=== PATIENT | male | born 1990 | race Caucasian/White ===

== ENCOUNTER 2018-07-20 18:37 | Emergency (ER) | payer SELFPAY, OTHER ==
[2018-07-20] MEDS: IBUPROFEN 600 MG TAB PO (21:42)
[2018-07-20 21:55] LABS: ADD UMIC YES; UR ASCORBIC ACID NEGATIVE (NEGATIVE); UR BACTERIA FEW /HPF (NONE SEEN); UR BILIRUBIN (Dip) NEGATIVE (NEGATIVE); UR BLOOD (Dip) NEGATIVE (NEGATIVE); UR CLARITY SLIGHTLY CLOUDY (CLEAR); UR COLOR YELLOW (YELLOW); UR GLUCOSE (Dip) NEGATIVE (NEGATIVE); UR KETONES (Dip) NEGATIVE (NEGATIVE); UR LEUKOCYTE ESTERASE (Dip) 2+ Leu/ul (NEGATIVE); UR MUCUS FEW /HPF (NONE SEEN); UR NITRITE (Dip) NEGATIVE (NEGATIVE); UR RBC 7 /HPF (0-5); UR SPECIFIC GRAVITY (Dip) 1.025 (1.003-1.030); UR TOTAL PROTEIN (Dip) 1+ mg/dl (NEGATIVE); UR UROBILINOGEN (Dip) 2+ mg/dL (NEGATIVE); UR WBC 159 /HPF (0-5)
[2018-07-20] MEDS: AZITHROMYCIN 250 MG TAB PO (23:12)
[2018-07-20] MEDS: DOXYCYCLINE 100 MG TAB PO (23:12)
[2018-07-20] MEDS: CEFTRIAXONE 250 MG INJ IM (23:12)
== END 2018-07-20 23:50 | disposition home or self-care (01) ==
LOC: FTE 18:37
DX: N50.812 Left testicular pain (principal); F17.210 Nicotine dependence, cigarettes, uncomplicated; R40.2412 Glasgow coma scale score 13-15, at arrival to emergency department; N45.3 Epididymo-orchitis
CPT/HCPCS: 76870; 81001; 87591; 96372; 99285-25